=== PATIENT | female | born 1980 | race Caucasian/White ===

== ENCOUNTER 2017-12-04 12:11 | Outpatient (CLI) | payer BC ==
[~2017-12-04] VITALS: Ht 180.3 cm; Wt 104.0 kg
[~2017-12-04 12:11] MED LIST: IBUP-1222 PO; IBUP-1223 PO; IBUP100T11 PO; OXYC-302 PO
[2017-12-04 12:25] VITALS: BP 129/69
[2017-12-04] MEDS ORDERED: BETAMETHASONE 6 MG/ML, 5ML IM ONE ×2 (12:30→12:41)
[2017-12-04 12:54] LABS: BASOPHILS # (AUTO) 0.03 x10^3/uL (0-0.1); BASOPHILS % (AUTO) 0 % (0-1); EOSINOPHILS # (AUTO) 0.12 x10^3/uL (0-0.4); EOSINOPHILS % (AUTO) 1 % (1-7); LYMPHOCYTES # (AUTO) 1.09 x10^3/uL (1-3.4); LYMPHOCYTES % (AUTO) 12 % (22-44); MD NO; MEAN CORPUSCULAR HGB CONC 33.4 g/dL (32.4-35.8); MEAN PLATELET VOLUME 8.1 fL (7.4-10.4); MONOCYTES # (AUTO) 0.67 x10^3/uL (0.2-0.8); MONOCYTES % (AUTO) 7 % (2-9); NEUTROPHILS # (AUTO) 7.54 x10^3/uL (1.8-6.8); NEUTROPHILS % (AUTO) 80 % (42-75); PLATELET COUNT 259 x10^3/uL (130-400); RED BLOOD COUNT 4.07 x10^6/uL (3.82-5.3); RED CELL DISTRIBUTION WIDTH 13.4 % (9.6-15.2)
[2017-12-04 13:07] LABS: ALBUMIN 2.3 g/dL (3.4-5.0); ANION GAP 9 mmol/L (5-15); CALCIUM 8.7 mg/dL (8.5-10.1); CHLORIDE 107 mmol/L (98-107)
[2017-12-04 13:11] LABS: ALANINE AMINOTRANSFERASE 22 U/L (12-78); ALKALINE PHOSPHATASE 104 U/L (45-117); BILIRUBIN,TOTAL 0.3 mg/dL (0.2-1.0); CREATININE 0.54 mg/dL (0.55-1.02); TOTAL PROTEIN 6.2 g/dL (6.4-8.2)
[2017-12-04 13:17] LABS: MICROSCOPIC AUTO
[2017-12-04] MEDS ORDERED: PREN1TAB60 PO (16:28)
== END 2017-12-04 16:50 | disposition home or self-care (01) ==
LOC: LDOP 12:11 → UNDOADMIN 14:48 → LDIP 14:48 → UNDODISIN 14:50 → LDIP 16:50
PROVIDERS: ATTEND Obstetrics & Gynecology Maternal & Fetal Medicine
DX: O26.893 Other specified pregnancy related conditions, third trimester (principal); Z34.83 Encounter for supervision of other normal pregnancy, third trimester; Z30.2 Encounter for sterilization; Z3A.37 37 weeks gestation of pregnancy
CPT/HCPCS: 36415; 59025; 76819; 80053; 81001; 82570; 84156; 84550; 85025; 86592; 86762; 86850; 86900; 87340; 87806; 96372; J0702; G0378; G0475

== ENCOUNTER 2017-12-05 12:16 | Outpatient (CLI) | payer BC ==
[~2017-12-05] VITALS: Ht 180.3 cm; Wt 104.5 kg
[~2017-12-05 12:16] MED LIST changes: +PREN1TAB60 PO
[2017-12-05] MEDS ORDERED: BETAMETHASONE 6 MG/ML, 5ML IM ONE ×2 (12:30→12:36)
[2017-12-05] MEDS ORDERED: PLEASE ENTER HEIGHT AND WEIGHT MC SCH (12:30)
== END 2017-12-05 13:28 | disposition home or self-care (01) ==
LOC: LDOP 12:16
PROVIDERS: ATTEND Obstetrics & Gynecology Maternal & Fetal Medicine
DX: O26.893 Other specified pregnancy related conditions, third trimester (principal); Z3A.36 36 weeks gestation of pregnancy
CPT/HCPCS: 59025; 99211; J0702; G0463

== ENCOUNTER 2017-12-09 11:21 | Inpatient (IN) | payer BC ==
[~2017-12-09] VITALS: Ht 180.3 cm; Wt 104.5 kg
[2017-12-09 14:30] VITALS: BP 132/82
[2017-12-09] MEDS ORDERED: OXYTOCIN 30U/ 0.9% NaCL 500ML 500 ML IV SCH (14:37)
[2017-12-09] MEDS ORDERED: LACTATED RINGERS 1,000 ML IV SCH ×2 (14:37→15:00)
[2017-12-09] MEDS ORDERED: NEWBORN KIT ONE (14:42)
[2017-12-09] MEDS ORDERED: OXYTOCIN 30U/ 0.9% NaCL 500ML 500 ML ONE (14:43)
[2017-12-09] MEDS ORDERED: LACTATED RINGERS 1,000 ML IVBOLUS ONE (15:00)
[2017-12-09] MEDS ORDERED: METOCLOPRAMIDE 5 MG/ML, 2ML IV ONE (15:00)
[2017-12-09] MEDS ORDERED: ONDANSETRON 2MG/ML, 2ML IVPush ONE (15:00)
[2017-12-09] MEDS ORDERED: SODIUM CITRATE/CITRIC ACID 30 ML UDC PO ONE (15:00)
[2017-12-09 15:07] LABS: BASOPHILS # (AUTO) 0.03 x10^3/uL (0-0.1); BASOPHILS % (AUTO) 0 % (0-1); EOSINOPHILS # (AUTO) 0.03 x10^3/uL (0-0.4); EOSINOPHILS % (AUTO) 0 % (1-7); LYMPHOCYTES # (AUTO) 1.45 x10^3/uL (1-3.4); LYMPHOCYTES % (AUTO) 12 % (22-44); MD NO; MEAN CORPUSCULAR HEMOGLOBIN 28.8 pg (27.0-34.8); MEAN CORPUSCULAR HGB CONC 33.5 g/dL (32.4-35.8); MEAN PLATELET VOLUME 7.8 fL (7.4-10.4); MONOCYTES # (AUTO) 0.57 x10^3/uL (0.2-0.8); MONOCYTES % (AUTO) 5 % (2-9); NEUTROPHILS # (AUTO) 9.89 x10^3/uL (1.8-6.8); NEUTROPHILS % (AUTO) 83 % (42-75); PLATELET COUNT 299 x10^3/uL (130-400); RED BLOOD COUNT 4.25 x10^6/uL (3.82-5.3); RED CELL DISTRIBUTION WIDTH 13.7 % (9.6-15.2)
[2017-12-09] MEDS ORDERED: SODIUM CITRATE/CITRIC ACID 30 ML UDC ONE (15:40)
[2017-12-09] MEDS ORDERED: METOCLOPRAMIDE 5 MG/ML, 2ML ONE (15:41)
[2017-12-09] MEDS ORDERED: PHENYLEPHRINE 10 MG/ML ONE (15:58)
[2017-12-09] MEDS ORDERED: EPHEDRINE 50 MG/ML, 1ML ONE (15:58)
[2017-12-09] MEDS ORDERED: CEFAZOLIN 1,000 MG ONE (15:58)
[2017-12-09] MEDS ORDERED: OXYTOCIN 10 UNITS/ML, 1ML ONE (15:58)
[2017-12-09] MEDS ORDERED: ONDANSETRON 2MG/ML, 2ML ONE ×2 (15:58→18:14)
[2017-12-09] MEDS ORDERED: WATER-INJECTION,STERILE 10 ML IV ONE (15:58)
[2017-12-09] MEDS ORDERED: DIPH,PERTUSS(ACELL),TET VAC/PF NC IM-VACC PRN (17:30)
[2017-12-09] MEDS ORDERED: MEASLES,MUMPS&RUBELLA VACC/PF 0.5 ML SQ-VACC PRN (17:30)
[2017-12-09] MEDS ORDERED: MISOPROSTOL 200 MCG TABLET PR PRN (17:30)
[2017-12-09] MEDS ORDERED: KETOROLAC 30 MG/1 ML IV PRN (17:30)
[2017-12-09] MEDS ORDERED: SIMETHICONE 80 MG CHEW TAB PO PRN (17:30)
[2017-12-09] MEDS ORDERED: CARBOPROST TROMETHAMINE 250 MCG/ML, 1ML IM PRN (17:30)
[2017-12-09] MEDS ORDERED: ACETAMINOPHEN 325 MG TABLET PO PRN (17:30)
[2017-12-09] MEDS ORDERED: ONDANSETRON 2MG/ML, 2ML IV PRN (17:30)
[2017-12-09] MEDS ORDERED: METHYLERGONOVINE 0.2 MG/ML IM PRN (17:30)
[2017-12-09] MEDS ORDERED: morphine SULFATE 10 MG/ML, 1ML IVPush PRN ×2 (17:30)
[2017-12-09] MEDS ORDERED: GLYCOPYRROLATE 0.4 MG/2 ML, 2ML ONE ×2 (18:13)
[2017-12-09] MEDS ORDERED: DIPHENHYDRAMINE 50 MG/ML, 1ML ONE (18:26)
[2017-12-09] MEDS ORDERED: KETOROLAC 30 MG/1 ML ONE (18:47)
[2017-12-09] MEDS: KETOROLAC 30 MG/1 ML IV SCH (18:52)
[2017-12-09] MEDS ORDERED: DIPHENHYDRAMINE 50 MG/ML, 1ML IVPush ONE (19:00)
[2017-12-09] MEDS: OXYTOCIN 30U/ 0.9% NaCL 500ML 500 ML IV SCH (19:18)
[2017-12-09] MEDS: LACTATED RINGERS 1,000 ML IV SCH ×2 (19:22→20:10)
[2017-12-09] MEDS ORDERED: OXYcodone/APAP 5/325MG TABLET ONE (19:28)
[2017-12-09] MEDS: OXYcodone/APAP 5/325MG TABLET PO PRN ×2 (19:29→22:59)
[2017-12-09 20:10] VITALS: BP 107/62
[2017-12-09] MEDS: DOCUSATE 100 MG CAPSULE PO PRN (22:58)
[2017-12-10] MEDS: KETOROLAC 30 MG/1 ML IV SCH ×4 (00:33→19:19)
[2017-12-10 00:45] VITALS: BP 102/63
[2017-12-10] MEDS: LACTATED RINGERS 1,000 ML IV SCH ×2 (01:29→03:29)
[2017-12-10] MEDS: OXYcodone/APAP 5/325MG TABLET PO PRN ×5 (03:11→21:54)
[2017-12-10] MEDS: OXYTOCIN 30U/ 0.9% NaCL 500ML 500 ML IV SCH (03:29)
[2017-12-10 05:30] VITALS: BP 113/66
[2017-12-10 06:05] LABS: BASOPHILS # (AUTO) 0.03 x10^3/uL (0-0.1); BASOPHILS % (AUTO) 0 % (0-1); EOSINOPHILS # (AUTO) 0.06 x10^3/uL (0-0.4); EOSINOPHILS % (AUTO) 1 % (1-7); LYMPHOCYTES # (AUTO) 1.42 x10^3/uL (1-3.4); LYMPHOCYTES % (AUTO) 14 % (22-44); MD NO; MEAN CORPUSCULAR HEMOGLOBIN 29.5 pg (27.0-34.8); MEAN CORPUSCULAR HGB CONC 33.9 g/dL (32.4-35.8); MEAN CORPUSCULAR VOLUME 87.2 fL (80-100); MEAN PLATELET VOLUME 8.1 fL (7.4-10.4); MONOCYTES # (AUTO) 0.63 x10^3/uL (0.2-0.8); MONOCYTES % (AUTO) 6 % (2-9); NEUTROPHILS # (AUTO) 7.78 x10^3/uL (1.8-6.8); NEUTROPHILS % (AUTO) 79 % (42-75); PLATELET COUNT 229 x10^3/uL (130-400); RED BLOOD COUNT 3.53 x10^6/uL (3.82-5.3); RED CELL DISTRIBUTION WIDTH 13.4 % (9.6-15.2)
[2017-12-10] MEDS: PRENATAL VIT/IRON/FA 1 EACH TABLET PO SCH (07:05)
[2017-12-10] MEDS: DOCUSATE 100 MG CAPSULE PO PRN (07:05)
[2017-12-10 07:40] VITALS: BP 98/58
[2017-12-10 12:15] VITALS: BP 114/74
[2017-12-10 16:40] VITALS: BP 113/72
[2017-12-10 19:23] VITALS: BP 116/71
[2017-12-11] MEDS: KETOROLAC 30 MG/1 ML IV SCH ×3 (00:57→13:00)
[2017-12-11] MEDS: DOCUSATE 100 MG CAPSULE PO PRN ×2 (00:58→07:42)
[2017-12-11] MEDS: OXYcodone/APAP 5/325MG TABLET PO PRN ×3 (04:50→17:15)
[2017-12-11] MEDS: PRENATAL VIT/IRON/FA 1 EACH TABLET PO SCH (07:42)
[2017-12-11 07:46] VITALS: BP 123/80
[2017-12-11] MEDS ORDERED: IBUPROFEN 600 MG TABLET ONE (15:09)
[2017-12-11] MEDS ORDERED: IBUPROFEN 600 MG TABLET PO PRN (15:30)
[2017-12-11] MEDS ORDERED: OXYC-302 PO (16:14)
[2017-12-11] MEDS ORDERED: IBUP-1222 PO (16:14)
== END 2017-12-11 19:05 | disposition home or self-care (01) | DRG 766 ==
LOC: LDIP 14:04 → 2NW 19:47
PROVIDERS: ADMIT Obstetrics & Gynecology Maternal & Fetal Medicine; ATTEND Obstetrics & Gynecology Maternal & Fetal Medicine
PROC: 10D00Z1 Extraction of Products of Conception, Low, Open Approach (ICD-10-PCS; principal; 2017-12-09)
PROC: 0UB70ZZ Excision of Bilateral Fallopian Tubes, Open Approach (ICD-10-PCS; 2017-12-09)
DX: O34.211 Maternal care for low transverse scar from previous cesarean delivery (principal); O69.1XX0 Labor and delivery complicated by cord around neck, with compression, not applicable or unspecified; O32.1XX0 Maternal care for breech presentation, not applicable or unspecified; Z37.0 Single live birth; Z3A.37 37 weeks gestation of pregnancy; Z30.2 Encounter for sterilization
CPT/HCPCS: 36415; 85025; 86850; 86900; 88302; G0378; J0690; J1885; J2405; J1200; J2370; J2590; J2765; J7120